=== PATIENT | male | born 1935 | race Caucasian/White ===

== ENCOUNTER 2017-03-03 21:52 | Inpatient (IN) | payer OTHER ==
[~2017-03-03] VITALS: Ht 170.2 cm; Wt 73.0 kg
--- NOTE | 2017-03-03 22:07 | ED CARDIAC/CP/PALPITATIONS ---
History of Present Illness General Chief Complaint: Chest Pain Stated Complaint: CP X 3 DAYS Source: patient, family, old records Exam Limitations: no limitations Vital Signs & Intake/Output Vital Signs & Intake/Output Vital Signs Date Time Temp Pulse Resp B/P B/P Pulse O2 O2 Flow FiO2 Mean Ox Delivery Rate 03/03 2220 98.0 71 22 162/88 97 Allergies Coded Allergies: No Known Allergies (03/03/17) Reconcile Medications Aspirin (Ecotrin*) 81 MG TABLET.DR 1 TAB PO DAILY HEART/BLOOD (Reported) Multivit-Min/FA/Lycopen/Lutein (Centrum Silver Men Tablet) 300 MCG-600 MCG-300 MCG TABLET 1 TAB PO DAILY SUPPLEMENT (Reported) Omeprazole 20 MG TABLET.DR 1 TAB PO PRN GI (Reported) Saw [place] (Unknown Strength) CAPSULE (Unknown Dose) PO DAILY SUPPLEMENT ( Reported) Vit C/E/Zn/Coppr/Lutein/Zeaxan (Preservision Areds 2 Softgel) 250-200-40 CAPSULE 1 CAP PO DAILY SUPPLEMENT (Reported) Triage Nurses Notes Reviewed? yes HPI: Patient has been having intermittent chest pain over the past 3 days. The pain is substernal and described as a pressure sensation. There are no aggravating or mitigating factors. Patient has not noticed any change with exertion. Patient states it occasionally radiates up towards his jaw and his left arm. There is no nausea or vomiting. There is no shortness of breath. There is no diaphoresis. Approximately 2 hours prior to arrival the pain became sharp and constant however it waxes and wanes in intensity. The pain goes anywhere from an 8 out of 10 at its worst and down to a 4 out of 10 when it decreases. The pain while he was watching TV. The pain has been constant for the past 2 hours. There is no radiation. There are no aggravating or mitigating factors. Never had a pain like this before. Patient has never seen a dust brush assembler. Past History Travel History Traveled to [place] past 21 day No Medical History Any Pertinent Medical History? see below for history Renal: benign prost hyperplasia Surgical History Surgical History: non-contributory Psychosocial History What is your primary language Singaporean Tobacco Use: Never used ETOH Use: denies use Illicit Drug Use: denies illicit drug use Family History Hx Contributory? No Review of Systems Review of Systems Constitutional: Reports: no symptoms. EENTM: Reports: no symptoms. Respiratory: Reports: no symptoms. Cardiovascular: Reports: see HPI, chest pain. GI: Reports: no symptoms. Genitourinary: Reports: no symptoms. Musculoskeletal: Reports: no symptoms. Skin: Reports: no symptoms. Neurological/Psychological: Reports: no symptoms. Hematologic/Endocrine: Reports: no symptoms. Immunologic/Allergic: Reports: no symptoms. All Other Systems: Reviewed and Negative Physical Exam Physical Exam General Appearance: well developed/nourished, alert, awake, anxious, moderate distress Head: atraumatic, normal appearance Eyes: Bilateral: PERRL, EOMI. Ears, Nose, Throat: normal pharynx, normal ENT inspection, hearing grossly normal Neck: normal inspection, supple, full range of motion, NO JVD Respiratory: normal breath sounds, chest non-tender, no respiratory distress, lungs clear Cardiovascular: regular rate/rhythm, normal peripheral pulses Gastrointestinal: normal bowel sounds, soft, non-tender, no organomegaly Back: normal inspection, normal range of motion Extremities: normal inspection, normal capillary refill, normal range of motion, no edema Neurologic/Psych: no motor/sensory deficits, awake, alert, oriented x 3, normal gait, normal mood/affect Skin: intact, normal color, warm/dry Lymphatic: no anterior cervical anil Core Measures ACS in differential dx? Yes ASA ordered for poss ACS? Yes-ordered Severe Sepsis Present: No Septic Shock Present: No Progress Differential Diagnosis: AMI, aortic dissection, cholecystitis, costochondritis, musculoskeletal pain, myocarditis, pericarditis, pneumonia, pneumothorax, pulmonary embolism Plan of Care: Orders Procedure Date/time Status Patient Data 03/03 2338 Active Admit to inpatient 03/03 2333 Active Add-on Test (ER Only) 03/03 2241 Active D-DIMER 03/03 2215 Complete Telemetry/Pediatric Allergist 03/03 2207 Active URINALYSIS 03/03 2207 Active TROPONIN LEVEL 03/03 2207 Complete COMPREHENSIVE METABOLIC PANEL 03/03 2207 Complete CBC WITHOUT DIFFERENTIAL 03/03 2207 Complete EKG 03/03 2153 Active Current Medications Sig/Jade Start time Last Medication Dose Stop Time Status Admin Heparin Sodium 4,000 UNIT ONCE ONE 03/03 2345 UNVr (Porcine) 03/03 2346 (Heparin Bolus) Heparin Sodium/ 25,000 UNIT Q24H 03/03 2345 UNVr Dextrose (Heparin) Dextrose/Water 500 ML (D5W) Ticagrelor 180 MG ONCE ONE 03/03 2345 UNVr (Brilinta) 03/03 2346 Laboratory Tests 03/03/175: Anion Gap 15, Estimated GFR 53 L, BUN/Creatinine Ratio 14.6, Glucose 125 H, Calcium 9.7, Total Bilirubin 0.5, AST 53, ALT 40, Alkaline Phosphatase 103, Troponin I 2.24 *H, Total Protein 7.1, Albumin 4.5, Globulin 2.6, Albumin/ Globulin Ratio 1.7, D-Dimer High Sensitivty < 200, CBC w Diff NO MAN DIFF REQ, RBC 5.42, MCV 94.0, MCH 31.8 H, RDW 12.9, MPV 7.3 L, Gran % 77.3 H, Lymphocytes % 15.4 L, Monocytes % 5.4, Eosinophils % 1.2, Basophils % 0.7, Absolute Granulocytes 8.8 H, Absolute Lymphocytes 1.8, Absolute Monocytes 0.6, Absolute Eosinophils 0.1, Absolute Basophils 0.1, PUBS MCHC 33.8 Diagnostic Imaging: Viewed by Me: Radiology Read. Discussed w/RAD: Radiology Read. CXR Impression: PATIENT: DALILA HUSSEIN PRESENT AGE : 82 PATIENT ACCOUNT NO: [id number] : 37 LOCATION: [facility] ORDERING PHYSICIAN: SANDY VILLA MD SERVICE DATE: 03/03/17 EXAM TYPE: RAD - XRY-PORTABLE CHEST XRAY EXAMINATION: CHEST 1 VIEW CLINICAL INFORMATION: Chest pain. COMPARISON: None. TECHNIQUE: An AP view of the chest is provided. FINDINGS : The cardiac silhouette is not enlarged. The mediastinal and hilar contours are unremarkable. There are neither pleural effusions nor pneumothoraces. There are no consolidations. The osseous structures are unremarkable. IMPRESSION: No evidence for acute disease. DICTATED BY: ALBARO BLACK MD DATE/TIME DICTATED:2257 DRY COLOR TESTER:LEVON DATE/TIME TRANSCRIBED:03/03/172257 CONFIDENTIAL, DO NOT COPY WITHOUT APPROPRIATE AUTHORIZATION. <Electronically signed in Other Vendor System> SIGNED BY: ALBARO BLACK MD 03/03/17 0548 Initial ED EKG: SINUS RHYTHM WITH LESS THAN 0.[address] ELEVATION IN v2 AND v3. nO RECIPROCAL CHANGES. tHE st SEGMENT ELEVATIONS WERE SEEN PRIOR HOWEVER THE st SEGMENT HAS CONVEX LOOK OPPOSED TO THE CONCAVE LOOK THAT IT HAD PREVIOUSLY. Prior EKG: changed Comments: EKGs have been sent to Dr. Ramos for review. Departure Departure Disposition: STILL A PATIENT Condition: Guarded Clinical Impression Primary Impression: NSTEMI (non-ST elevated myocardial infarction) Referrals: NAOMIE KIMBROUGH MD (PCP/Family) Departure Forms: Customer Survey General Discharge Information Admission Note Spoke With: BIMAL RAMOS MD Documentation of Exam: Documentation of any treatments & extenuating circumstances including Concerns Regarding Discharge (functional status, medication knowledge or non-compliance, living conditions, etc.) that warrant an admission rather than observation: [ICU admission, low Berlant, IV heparin, aspirin given, pain control, anticipate 5 in the morning if not sooner.] Critical Care Note Critical Care Note Critical Care Time: mins: (45 MIN)
[2017-03-03 22:24] LABS: ABSOLUTE BASOPHIL COUNT 0.1 /CUMM (0.0-0.2); ABSOLUTE EOSINOPHIL COUNT 0.1 /CUMM (0.0-0.7); ABSOLUTE GRANULOCYTE CT 8.8 /CUMM (1.4-6.5); ABSOLUTE LYMPH COUNT 1.8 /CUMM (1.2-3.4); ABSOLUTE MONOCYTE COUNT 0.6 /CUMM (0.10-0.60); BASOPHIL % 0.7 % (0.0-2.0); EOSINOPHIL % 1.2 % (0-5); GRANULOCYTE % 77.3 % (42.2-75.2); MEAN CORPUSCULAR HGB 31.8 PG (27.0-31.0); MEAN CORPUSCULAR HGB CONC 33.8 G/DL (33.0-37.0); MEAN PLATELET VOLUME 7.3 FL (7.4-10.4); PLATELET COUNT 248 /CUMM (130-400); RBC DISTRIBUTION WIDTH 12.9 % (11.5-14.5); RED BLOOD CELL CT 5.42 /CUMM (4.70-6.10); WHITE BLOOD CELL COUNT 11.4 /CUMM (4.8-10.8)
--- NOTE | 2017-03-03 23:03 | RADIOLOGY REPORT ---
EXAMINATION: CHEST 1 VIEW CLINICAL INFORMATION: Chest pain. COMPARISON: None. TECHNIQUE: An AP view of the chest is provided. FINDINGS: The cardiac silhouette is not enlarged. The mediastinal and hilar contours are unremarkable. There are neither pleural effusions nor pneumothoraces. There are no consolidations. The osseous structures are unremarkable. IMPRESSION: No evidence for acute disease.
[2017-03-03] MEDS ORDERED: SAW PALMETTO500 M1 PO (23:05)
[2017-03-03] MEDS ORDERED: CENTRUM SILVER1 EAC4 PO (23:05)
[2017-03-03] MEDS ORDERED: PRESERVISION A1 EAC1 PO (23:06)
[2017-03-03] MEDS ORDERED: ASPIRIN EC81 M1 PO (23:06)
[2017-03-03] MEDS ORDERED: OMEPRAZOLE20 M3 PO (23:08)
--- NOTE | 2017-03-04 00:28 | History & Physical ---
TODD LYONS MD 03/04/17 0027: General Information and HPI MD Statement: I have seen and personally examined DALILA COOK and documented this H&P. The patient is a 82 year old M who presented with a patient stated chief complaint of chest pain. Source of Information: patient Exam Limitations: no limitations History of Present Illness: 82 year old male with no significant past medical history presents with complaints of intermittent chest pain for the past three days. He describes the chest pain as retrosternal, nonradiating and ranging from sharp to dull and 8/10 to 1/10 in severity. The onset and severity of the chest pain was not associated with exertion or rest. Today he states it became sharp and very severe while at rest, he took an aspirin and pepcid at home and came to the ER for evaluation. He denies any associated dyspnea, diaphoresis, nausea, vomiting or palpitations. He has never been evaluated by a forensic computer examiner. In the ED, he received aspirin, nitroglycerin SL, Brilinta, and was started on a heparin infusion. On EKG, he had ST segment changes suggestive of ischemia and positive troponins of 2.24. Patient was discussed with Dr. De Oliveira. Stool guiaic confirmed negative before heparin infusion was initiated. Rosemarie Cook [phone] Allergies/Medications Allergies: Coded Allergies: No Known Allergies (03/03/17) Home Med list Aspirin (Ecotrin*) 81 MG TABLET.DR 1 TAB PO DAILY HEART/BLOOD (Reported) Multivit-Min/FA/Lycopen/Lutein (Centrum Silver Men Tablet) 300 MCG-600 MCG-300 MCG TABLET 1 TAB PO DAILY SUPPLEMENT (Reported) Omeprazole 20 MG TABLET.DR 1 TAB PO PRN GI (Reported) Saw [place] (Unknown Strength) CAPSULE (Unknown Dose) PO DAILY SUPPLEMENT ( Reported) Vit C/E/Zn/Coppr/Lutein/Zeaxan (Preservision Areds 2 Softgel) 250-200-40 CAPSULE 1 CAP PO DAILY SUPPLEMENT (Reported) Compliance With Home Meds: GOOD Past History Travel History Traveled to [place] past 21 day No Medical History Neurological: NONE EENT: NONE Cardiovascular: NONE Respiratory: NONE Gastrointestinal: NONE Hepatic: NONE Renal: benign prost hyperplasia Musculoskeletal: NONE Psychiatric: NONE Endocrine: NONE Surgical History Surgical History: non-contributory Past Family/Social History Psychosocial History ETOH Use: denies use Illicit Drug Use: denies illicit drug use Review of Systems Review of Systems Constitutional: Reports: see HPI. Exam & Diagnostic Data Last 24 Hrs of Vital Signs/I&O Vital Signs Date Time Temp Pulse Resp B/P B/P Pulse O2 O2 Flow FiO2 Mean Ox Delivery Rate 03/04 0037 97.5 76 18 134/68 96 Room Air 03/03 2354 74 20 137/76 98 Room Air 03/03 2220 98.0 71 22 162/88 97 Intake & Output 03/04 0800 03/04 0000 03/03 1600 Intake Total Output Total Balance Patient 161 lb Weight Physical Exam General Appearance Alert, Oriented X3, Cooperative, No Acute Distress Skin No Rashes, No Breakdown HEENT Atraumatic, PERRLA, EOMI, Mucous Membr. moist/pink Neck Supple, No JVD, +2 Carotid Pulse wo Bruit Cardiovascular Regular Rate, Normal S1, Normal S2, No Murmurs Lungs Clear to Auscultation, Normal Air Movement Abdomen Normal Bowel Sounds, Soft, No Tenderness, No Masses Neurological Normal Speech, Strength at 5/5 X4 Ext, Normal Tone, Sensation Intact, Cranial Nerves 3-12 NL Extremities No Cyanosis, No Edema, Normal Pulses, No Tenderness/Swelling Vascular Normal Pulses, Pulses Symmetrical Last 24 Hrs of Labs/Brian: Laboratory Tests 03/03/175: Anion Gap 15, Estimated GFR 53 L, BUN/Creatinine Ratio 14.6, Glucose 125 H, Calcium 9.7, Total Bilirubin 0.5, AST 53, ALT 40, Alkaline Phosphatase 103, Troponin I 2.24 *H, Total Protein 7.1, Albumin 4.5, Globulin 2.6, Albumin/ Globulin Ratio 1.7, APTT Pending, D-Dimer High Sensitivty < 200, CBC w Diff NO MAN DIFF REQ, RBC 5.42, MCV 94.0, MCH 31.8 H, RDW 12.9, MPV 7.3 L, Gran % 77.3 H, Lymphocytes % 15.4 L, Monocytes % 5.4, Eosinophils % 1.2, Basophils % 0.7, Absolute Granulocytes 8.8 H, Absolute Lymphocytes 1.8, Absolute Monocytes 0.6, Absolute Eosinophils 0.1, Absolute Basophils 0.1, PUBS MCHC 33.8 Diagnostic Data EKG Results 0.5 mm NERY in V2-V3 also on prior EKG CXR Results no acute disease Assessment/Plan Assessment: 82 year old male with no significant PMH presents with complaints of chest pain and positive troponins. 1. NSTEMI Serial troponins and EKGs Heparin gtt-monitor PTT and titrate ASA, statin, beta galina, MALU, nitro and morphine prn Check lipid panel Echocardiogram Cardiology consult NPO for possible cardiac catheterization Hold supplements taken at home Pepcid NPO DVT ppx-on heparin gtt Full code As Ranked By This Provider Problem List: 1. NSTEMI (non-ST elevated myocardial infarction) Core Measures/Miscellaneous Acute Coronary Syndrome ACS Diagnosis: Yes ASA W/I 24hr of admit Yes Beta-Galina W/I 24hrs Yes LDL assessed W/I 24 hrs Yes Currently on Statin Yes Comment unknown EF/echo Cerebrovascular Accident CVA/TIA Diagnosis: No Congestive Heart Failure CHF Diagnosis: No VTE (View Protocol) VTE Risk Factors: Acute medical illness, Age > 40 [facility] prophylaxis d/t: No contraindications No VTE Pharm Prophylaxis d/t: No contraindications VTE Diagnosis: No VTE Type: NONE VTE Confirmed by (Test): NONE Sepsis (View Protocol) Severe Sepsis Present: No Septic Shock Septic Shock Present: No Miscellaneous Documentation Attending Case Discussed With: BIMAL TRIPP MD Primary Care Physician: NAOMIE KIMBROUGH MD Patient sees these Specialists none Level of Patient Care: Critical Care (CRI) HERMAN CABRERA 03/04/17 0048: Resident Review Statement Resident Statement: examined this patient, discussed with internet retailer, agreed with internet retailer Other Findings: Patient is 82-year-old male with nonsignificant past medical history came with chief complaint of substernal chest pain/pressure for last couple of days. Patient endorses that he had substernal chest pain off and on for last couple of days which is unrelated to exertion. But last night he experienced severe sharp tearing substernal chest pain 8 out of 10 with mild nausea but denied any vomiting, palpitations, shortness of breath, dizziness, headache, any urinary or bowel complaints. His pain was not relieved with aspirin which she took at home and also he took Pepcid. His symptoms were severe to the extent that he came to ER where he was given aspirin 325 mg, sublingual nitroglycerin which brings his pain down to 3 out of 10. By the time we examined patient he was comfortable without any severe chest pain. Vital signs on admission were temperature 90.8, pulse 71, respiratory rate 22, blood pressure 162/88 and he was saturating 97% on room air. Labs were WBC count 11.4, hemoglobin 78.2, sodium 137, potassium 4.1, BUNs 19, creatinine 1.3, troponins were elevated to 2.24. Chest x-ray was negative for any acute cardiopulmonary pathology EKG showed slight ST elevation in the 3 and V5 which were present in prior EKG but this time there is slightly more pronounced. Stonecutter Apprentice Hand was contacted by ER physician and patient was started on heparin drip and was given loading dose of brilinta. Physical examination Alert and oriented 3 Head atraumatic Neck supple no JVD Chest clear to auscultate The heart S1-S2 with no added sounds Abdomen soft with no organomegaly Extremities shows no cyanosis or edema No neurological deficit noted Assessment and plan 82-year-old male with no significant past medical history came with typical substernal chest pain with elevated troponins and slight ST segment elevation which is slightly changed from previous EKG most likely ST elevation NH/NSTEMI We will admit patient in ICU and will take care for the following problems Problem #1 chest pain with elevated troponins and slight ST elevation questionable for ST elevation NH/and STEMI ICU admission Patient was already on heparin drip We will guaiac all stools We will send ICU bundle and lipid profile in a.m. We will trend troponins and EKG to be peak Most likely patient will transfer to another facility for cardiac cath We will keep him nothing by mouth We will start patient on aspirin We'll start patient on statin We'll start patient on beta galina nothing by mouth Pharmacological DVT prophylaxis Patient is full code BIMAL TRIPP MD 03/04/17 0928: Past Family/Social History Family History Relations & Conditions if any FATHER Heart attack Psychosocial History Smoking Status: Never Smoked Attending MD Review Statement Attending Statement Attending MD Statement: examined this patient, discuss w/resident/PA/CERTIFIED OPHTHALMIC TECHNICIAN, agreed w/resident/PA/CERTIFIED OPHTHALMIC TECHNICIAN, reviewed EMR data (avail), discussed with nursing, reviewed images, amended to note Attending Assessment/Plan: The patient is a 82-year-old male with no significant past medical history presents with complaint of chest pain. He had dinner at a restaurant yesterday to celebrate his birthday. After drinking a glass of iced tea he had a cold sensation in his chest. After returning home he developed 7 out of 10 substernal chest pain which radiated to the left arm. He is not able to describe the character of the pain. The pain continued 4 hours after which she presented to the emergency department. He was treated with nitroglycerin in the emergency department and the pain subsequently resolved. He was found to have elevated troponin, and he was admitted for non-ST elevation myocardial infarction. He notes that he was previously taking aspirin, however 2 weeks ago he had bleeding from his scrotum, and he stopped the aspirin. In the emergency department he was treated with aspirin and Brilinta. He was started on IV heparin. He is now comfortable and pain-free. No syncope. No palpitations. No lightheadedness or dizziness. No nausea or vomiting. Review of systems: No fever. No chills. No rash. No tremor. No melena. All other systems were reviewed, and were noted to be negative. Vital Signs Date Time Temp Pulse Resp B/P B/P Pulse O2 O2 Flow FiO2 Mean Ox Delivery Rate 03/04 0923 74 114/63 07/18 0800 97.3 81 16 118/64 95 Room Air 03/04 0400 97 Room Air /18 0130 58 122/70 07/18 0130 98 Room Air /18 0130 97.8 60 16 122/70 98 Room Air /18 0037 97.5 76 18 134/68 96 Room Air 03/03 2354 74 20 137/76 98 Room Air 03/03 2220 98.0 71 22 162/88 97 Physical examination: Gen: The patient is in no acute distress HEENT: Normal nose, ears, and oropharynx. Pupils equal bilaterally. Conjunctiva normal. Neck: Supple with no JVD, no masses, and no thyromegaly Lungs: Clear to auscultation with normal respiratory effort Heart: RRR, S1, S2, no murmurs. No peripheral edema, 2+ pulses in the lower extremities bilaterally Abdomen: Soft, nontender, no masses. No hepatomegaly. No splenomegaly Extremities: No clubbing or cyanosis. Normal muscle strength in the upper and lower extremities Skin: Normal skin turgor with no skin ulcers or lesions noted. Neuro: Cranial nerves intact. Sensation intact Psych: Alert and oriented 3 with appropriate affect EKG: EKG tracing is independently reviewed, and reveals normal sinus rhythm at 64, borderline ST elevation in V1 and V2, which was partially present in 2014 as well Chest x-ray: Negative Laboratory Tests 03/04 03/04 03/04 0600 0400 0400 Chemistry Sodium (137 - 145 mmol/L) 137 Potassium (3.5 - 5.1 mmol/L) 3.9 Chloride (98 - 107 mmol/L) 106 Carbon Dioxide (22 - 30 mmol/L) 21 L Anion Gap (5 - 16) 10 BUN (9 - 20 mg/dL) 18 Creatinine (0.7 - 1.2 mg/dL) 1.2 Estimated GFR (>60 ml/min) 58 L Glucose (65 - 99 mg/dL) 129 H Hemoglobin A1c (4.2 - 5.8 %) 5.3 Calcium (8.4 - 10.2 mg/dL) 9.2 Phosphorus (2.5 - 4.5 mg/dL) 3.7 Magnesium (1.6 - 2.3 mg/dL) 2.2 Total Bilirubin (0.2 - 1.3 mg/dL) 0.5 AST (17 - 59 U/L) 62 H ALT (21 - 72 U/L) 40 Troponin I (<0.11 ng/ml) 6.08 *H Albumin (3.5 - 5.0 g/dL) 3.8 Triglycerides (<150 mg/dL) 232 H Cholesterol (< 200 MG/DL) 190 LDL Cholesterol, Calc (65 - 129 mg/dL) 107 HDL Cholesterol (40 - 60 mg/dL) 37 L Cholesterol/HDL Ratio (0.00 - 4.88 %) 5 H TSH &T3 &Free T4 Intrp (0.27 - 4.20 uIU/mL) 2.530 Coagulation APTT (25 - 37 SEC) 72 H Hematology CBC w Diff NO MAN DIFF REQ WBC (4.8 - 10.8 /CUMM) 12.2 H RBC (4.70 - 6.10 /CUMM) 5.08 Hgb (14.0 - 18.0 G/DL) 16.2 Hct (42 - 52 %) 48.3 MCV (80.0 - 94.0 FL) 95.1 H MCH (27.0 - 31.0 PG) 31.8 H RDW (11.5 - 14.5 %) 13.1 Plt Count (130 - 400 /CUMM) 233 MPV (7.4 - 10.4 FL) 7.5 Gran % (42.2 - 75.2 %) 78.4 H Lymphocytes % (20.5 - 51.1 %) 13.2 L Monocytes % (1.7 - 9.3 %) 6.3 Eosinophils % (0 - 5 %) 1.7 Basophils % (0.0 - 2.0 %) 0.4 Absolute Granulocytes (1.4 - 6.5 /CUMM) 9.6 H Absolute Lymphocytes (1.2 - 3.4 /CUMM) 1.6 Absolute Monocytes (0.10 - 0.60 /CUMM) 0.8 H Absolute Eosinophils (0.0 - 0.7 /CUMM) 0.2 Absolute Basophils (0.0 - 0.2 /CUMM) 0 PUBS MCHC (33.0 - 37.0 G/DL) 33.5 07/17 2215 Chemistry Sodium (137 - 145 mmol/L) 137 Potassium (3.5 - 5.1 mmol/L) 4.1 Chloride (98 - 107 mmol/L) 104 Carbon Dioxide (22 - 30 mmol/L) 19 L Anion Gap (5 - 16) 15 BUN (9 - 20 mg/dL) 19 Creatinine (0.7 - 1.2 mg/dL) 1.3 H Estimated GFR (>60 ml/min) 53 L BUN/Creatinine Ratio (7 - 25 %) 14.6 Glucose (65 - 99 mg/dL) 125 H Calcium (8.4 - 10.2 mg/dL) 9.7 Total Bilirubin (0.2 - 1.3 mg/dL) 0.5 AST (17 - 59 U/L) 53 ALT (21 - 72 U/L) 40 Alkaline Phosphatase (< 127 U/L) 103 Troponin I (<0.11 ng/ml) 2.24 *H Total Protein (6.3 - 8.2 g/dL) 7.1 Albumin (3.5 - 5.0 g/dL) 4.5 Globulin (1.9 - 4.2 gm/dL) 2.6 Albumin/Globulin Ratio (1.1 - 2.2 %) 1.7 Coagulation APTT (25 - 37 SEC) 37 D-Dimer High Sensitivty (0 - 243 ng/ml) < 200 Hematology CBC w Diff NO MAN DIFF REQ WBC (4.8 - 10.8 /CUMM) 11.4 H RBC (4.70 - 6.10 /CUMM) 5.42 Hgb (14.0 - 18.0 G/DL) 17.2 Hct (42 - 52 %) 51.0 MCV (80.0 - 94.0 FL) 94.0 MCH (27.0 - 31.0 PG) 31.8 H RDW (11.5 - 14.5 %) 12.9 Plt Count (130 - 400 /CUMM) 248 MPV (7.4 - 10.4 FL) 7.3 L Gran % (42.2 - 75.2 %) 77.3 H Lymphocytes % (20.5 - 51.1 %) 15.4 L Monocytes % (1.7 - 9.3 %) 5.4 Eosinophils % (0 - 5 %) 1.2 Basophils % (0.0 - 2.0 %) 0.7 Absolute Granulocytes (1.4 - 6.5 /CUMM) 8.8 H Absolute Lymphocytes (1.2 - 3.4 /CUMM) 1.8 Absolute Monocytes (0.10 - 0.60 /CUMM) 0.6 Absolute Eosinophils (0.0 - 0.7 /CUMM) 0.1 Absolute Basophils (0.0 - 0.2 /CUMM) 0.1 PUBS MCHC (33.0 - 37.0 G/DL) 33.8 Assessment: The patient is an 82-year-old male with no severe cardiac history presenting with chest pain lasting for hours. He has borderline EKG changes. Symptoms resolved with nitroglycerin and he is now pain-free. He is found to have a non- ST elevation myocardial infarction, with troponin of 6.08. Plan: * Continue aspirin and Brilinta * Continue IV heparin for now, and hold prior to catheterization * Continue metoprolol * Atorvastatin 80 mg daily * Transfer to [facility] for cardiac catheterization and possible stent placement with Dr. Kuhn * Up in the office one week after discharge.
[2017-03-04 01:04] LABS: PTT 37 SEC (25-37)
[2017-03-04 01:30] VITALS: BP 122/70
[2017-03-04 04:31] LABS: ABSOLUTE BASOPHIL COUNT 0 /CUMM (0.0-0.2); ABSOLUTE EOSINOPHIL COUNT 0.2 /CUMM (0.0-0.7); ABSOLUTE GRANULOCYTE CT 9.6 /CUMM (1.4-6.5); ABSOLUTE LYMPH COUNT 1.6 /CUMM (1.2-3.4); ABSOLUTE MONOCYTE COUNT 0.8 /CUMM (0.10-0.60); BASOPHIL % 0.4 % (0.0-2.0); EOSINOPHIL % 1.7 % (0-5); GRANULOCYTE % 78.4 % (42.2-75.2); HEMATOCRIT 48.3 % (42-52); MEAN CORPUSCULAR HGB 31.8 PG (27.0-31.0); MEAN CORPUSCULAR HGB CONC 33.5 G/DL (33.0-37.0); MEAN CORPUSCULAR VOLUME 95.1 FL (80.0-94.0); MEAN PLATELET VOLUME 7.5 FL (7.4-10.4); PLATELET COUNT 233 /CUMM (130-400); RBC DISTRIBUTION WIDTH 13.1 % (11.5-14.5); RED BLOOD CELL CT 5.08 /CUMM (4.70-6.10); WHITE BLOOD CELL COUNT 12.2 /CUMM (4.8-10.8)
--- NOTE | 2017-03-04 05:50 | Discharge Summary ---
Visit Information Visit Dates Admission Date: 03/03/17 Discharge Date: 03/04/17 Hospital Course Course Attending Physician: BIMAL TRIPP MD Primary Care Physician: NAOMIE KIMBROUGH MD Consulting Request: Consulting Specialty: Cardiology Hospital Course: Patient is 82-year-old male with nonsignificant past medical history came with chief complaint of substernal chest pain/pressure for last couple of days. Patient endorses that he had substernal chest pain off and on for last couple of days which is unrelated to exertion. But last night he experienced severe sharp tearing substernal chest pain 8 out of 10 with mild nausea but denied any vomiting, palpitations, shortness of breath, dizziness, headache, any urinary or bowel complaints. His pain was not relieved with aspirin which she took at home and also he took Pepcid. His symptoms were severe to the extent that he came to ER where he was given aspirin 325 mg, sublingual nitroglycerin which brings his pain down to 3 out of 10. Labs were WBC count 11.4, hemoglobin 78.2, sodium 137, potassium 4.1, BUNs 19, creatinine 1.3, troponins were elevated to 2.24. Chest x-ray was negative for any acute cardiopulmonary pathology EKG showed slight ST elevation in the 3 and V5 which were present in prior EKG but this time there is slightly more pronounced. [employer] was contacted by ER physician and patient was started on heparin drip and was given loading dose of brilinta. Patient was admitted in ICU was started on heparin drip after negative stool guaiac. His second set of troponin was elevated from 2.24 to 6.08 but there were no acute ST-T wave changes in his EKG. He was provided with nitroglycerin and remained pain-free. He remained hemodynamically stable during his hospital stay. Third troponin returned increased to 8.92 without new changes on EKG. Patient was seen and evaluated by law librarian Dr. Tripp whom agreed with the plan. Transfer was arranged to [facility] under the care of Dr. Kuhn for further evaluation and cardiac catheterization. He was continued on the heparin drip upon discharge. Complications: None Allergies: Coded Allergies: No Known Allergies (03/03/17) Significant Procedures: SERVICE DATE: 03/03/17 EXAM TYPE: RAD - XRY-PORTABLE CHEST XRAY EXAMINATION: CHEST 1 VIEW CLINICAL INFORMATION: Chest pain. COMPARISON: None. TECHNIQUE: An AP view of the chest is provided. FINDINGS: The cardiac silhouette is not enlarged. The mediastinal and hilar contours are unremarkable. There are neither pleural effusions nor pneumothoraces. There are no consolidations. The osseous structures are unremarkable. IMPRESSION: No evidence for acute disease. Disposition Summary Disposition Principal Diagnosis: Acute coronary syndrome Additional Diagnosis: None Discharge Disposition: other general hospital Discharge Instructions General Discharge Information Code Status: Full Code Patient's Diet: Nothing by mouth for cardiac catheterization Patient's Activity: As tolerated Follow-Up Instructions/Appts: Please follow-up with your primary care physician in one week of discharge Please follow-up with law librarian in 1 week of discharge Medications at Discharge Discharge Medications: Continue taking these medications: [place] (Saw [place]) (Unknown Strength) CAPSULE Unknown Dose ORAL DAILY Comments: NOT GIVEN IN HOSPITAL Multivit-Min/FA/Lycopen/Lutein (Centrum Silver Men Tablet) 300 MCG-600 MCG-300 MCG TABLET 1 Tablet ORAL DAILY Comments: NOT GIVEN IN HOSPITAL Vit C/E/Zn/Coppr/Lutein/Zeaxan (Preservision Areds 2 Softgel) 250-200-40 CAPSULE 1 Capsule ORAL DAILY Comments: NOT GIVEN IN HOSPITAL Aspirin (Ecotrin*) 81 MG TABLET. 1 Tablet ORAL DAILY Comments: Last Taken:03/04/17 Time:929 Omeprazole (Omeprazole) 20 MG TABLET. 1 Tablet ORAL as needed for GI Comments: NOT GIVEN IN HOSPITAL Start taking the following new medications: Atorvastatin Calcium (Atorvastatin Calcium) 80 MG TABLET 80 Milligram ORAL 5 PM Qty = 30 No Refills Nitroglycerin (Nitro-Bid) 2 % OINT...G. 0.5 Gram On the skin EVERY SIX HOURS NEEDED as needed for CHEST PAIN Days = 1 No Refills Metoprolol Tartrate (Metoprolol Tartrate) 50 MG TABLET 50 Milligram ORAL TWICE DAILY as needed for HEART HEALTH Days = 30 No Refills Comments: Last Taken:03/04/17 Time:929 Heparin Sodium,Porcine/D5w (Heparin-D5w 25,000 Unit/500 Ml) 25,000 UNIT/500 ML ( 50 UNIT/ML) IV.SOLN 25,000 Units INTRAVEN DAILY Days = 1 No Refills Instructions: TITRATE TO AN aPTT 2x THE UPPER LIMIT OF NORMAL Copies To: VISHNU RODRÍGUEZ,DALILA Gunn; BIMAL TRIPP MD; KAYLAN RODRÍGUEZ,NAOMIE Attending MD Review Statement Documenting Attending: JOSEE RODRÍGUEZ,BIMAL
[2017-03-04 06:32] LABS: PTT 72 SEC (25-37)
[2017-03-04 08:00] VITALS: BP 118/64
[2017-03-04 09:23] VITALS: BP 114/63
[2017-03-04] MEDS ORDERED: NITRO-BID1 GM TOP (09:59)
[2017-03-04] MEDS ORDERED: METOPROLOL TART50 M1 PO (09:59)
[2017-03-04] MEDS ORDERED: HEPARIN-D525000 UNI1 IV (09:59)
[2017-03-04] MEDS ORDERED: ATORVASTATIN CA80 M1 PO (09:59)
[2017-03-04] MEDS ORDERED: BRILINTA90 M1 PO (11:37)
== END 2017-03-04 12:15 | disposition short-term general hospital (02) | DRG 282 ==
LOC: ERH 21:52 → CRI 23:33 → ERHI 23:33 → ENRESERV 03-04 00:12 → CRI 03-04 01:07
PROVIDERS: Emergency Medicine; Internal Medicine; ADMIT Internal Medicine Cardiovascular Disease
DX: I21.4 Non-ST elevation (NSTEMI) myocardial infarction (principal)
CPT/HCPCS: ERO; 36415; 82436; 93005; 93010; 96374; 99291; J1644; J3490; J7060